=== PATIENT | male | born 1990 | race Hispanic/Latino ===

== ENCOUNTER 2020-11-11 16:23 | Emergency (ER) | payer SELFPAY ==
[~2020-11-11] VITALS: Ht 175.3 cm; Wt 90.7 kg
[2020-11-11] MEDS ORDERED: KETOROLAC TROMETHAMINE 30 MG/ML VIAL IV STA (16:34)
[2020-11-11] MEDS ORDERED: DIPHENHYDRAMINE HCL 25 MG CAP PO ONE (16:45)
[2020-11-11] MEDS ORDERED: SODIUM CHLORIDE 0.9% 1000ML 1,000 ML IV SCH (16:45)
[2020-11-11] MEDS ORDERED: METOCLOPRAMIDE HCL 10 MG/2ML VIAL IV ONE (16:45)
[2020-11-11] MEDS ORDERED: FIORICET 50-301 EACH PO (17:25)
[2020-11-11 18:02] VITALS: BP 124/84
== END 2020-11-11 18:04 | disposition home or self-care (01) ==
LOC: ER 16:45
DX: G43.909 Migraine, unspecified, not intractable, without status migrainosus (principal); Z87.442 Personal history of urinary calculi
CPT/HCPCS: 71045; 93005; 99283; J1885; J2765; J7030